=== PATIENT | male | born 2000 | race Caucasian/White ===

== ENCOUNTER 2023-10-19 10:47 | Emergency (ER) | payer BC, SELFPAY ==
--- NOTE | ~2023-10-19 | XR_ITS ---
EXAMINATION: XR foot LT min 3V DATE: 10/19/2023 11:13 INDICATION: Lateral left foot pain and swelling post injury TECHNIQUE: Dorsoplantar, two oblique and lateral views of the left foot were obtained. COMPARISON: None. FINDINGS: 2 mm distraction of an intra-articular avulsion fracture at the lateral base of the left fifth metata rsal. Bone alignment is otherwise normal. No other fractures identified. Joint spaces are normal. Mil d soft tissue swelling at the dorsolateral aspect of the midfoot. IMPRESSION: 1. Minimally displaced avulsion fracture at the lateral base of the left fifth metatarsal. Reviewed, dictated and finalized at location B.
[2023-10-19 11:00] VITALS: BP 121/80; PULSE 80; RESP 16; TEMP 36.7; O2SAT 99
--- NOTE | 2023-10-19 11:21 | ED.LOWEXIN ---
HPI - Extremity Injury (Lower) General Chief Complaint: Extremity Injury, Lower Stated Complaint: Left Foot Injury Time Seen by Provider: 10/19/23 11:15 Source: patient and RN notes reviewed Mode of arrival: ambulatory Limitations: no limitations History of Present Illness HPI Narrative: Patient presents today complaining of an injury to his left foot. States he rolled his foot last night playing basketball and hurt pop. Currently rates his pain 4/10 and has been applying ice and elevating the foot. Denies numbness or tingling. Related Data Home Medications Medication Instructions Recorded Confirmed No Home Medications 10/19/23 10/19/23 Allergies Allergy/AdvReac Type Severity Reaction Status Date / Time ibuprofen Allergy Swelling Verified 10/19/23 10:57 of Lip/Tongue/Throat Review of Systems Review of Systems: CONSTITUTIONAL: Denies body aches, fever, chills, or sweats. EYES: Denies visual changes, redness, or discharge. ENT: Denies rhinorrhea, congestion, sore throat, or otalgia. CARDIOVASCULAR: Denies chest pain, palpitations, or edema. RESPIRATORY: Denies cough or dyspnea. GASTROINTESTINAL: Denies abdominal pain, nausea, vomiting, or diarrhea. GENITOURINARY: Denies dysuria or hematuria. SKIN: Denies rash, itching, or wounds. MUSCULOSKELETAL: + left foot injury NEUROLOGIC: Denies headache, numbness, tingling, or weakness. PSYCH: Denies depression or anxiety. PMFSH Comments At time of signature, I have reviewed and agree with nursing past medical, surgical, social and family history unless otherwise noted. Please see nursing chart for further information. There is no relevant family history pertinent to the presenting complaint Exam Narrative: GENERAL: Well-appearing, well-nourished, and in no acute distress. HEAD: Normocephalic, atraumatic. EYES: EOMI. No redness or drainage. Conjunctivae normal. ENT: Mucous membranes pink and moist. NECK: Normal AROM. CHEST: No respiratory distress. EXTREMITIES: Left foot: Mild swelling and moderate ecchymosis to the lateral foot with tenderness to the 5th metatarsal. Distal sensation intact. Capillary refill normal. Pedal pulse normal. Full range of motion of all toes and ankle. Pain with internal and external rotation of foot. SKIN: Warm, dry, no rash. Capillary refill normal. Normal skin turgor. NEURO: No focal deficits. Alert and oriented x3. Gait steady. PSYCH: Normal affect. No signs of depression or anxiety. Course Course Level of Care: Express Care Visit Vital Signs Vital signs: Vital Signs Temperature 98.1 F 10/19/23 11:00 Pulse Rate 80 10/19/23 11:00 Respiratory Rate 16 10/19/23 11:00 Blood Pressure 121/80 10/19/23 11:00 Pulse Oximetry 99 10/19/23 11:00 Temperature 98.1 F 10/19/23 11:00 Pulse Rate 80 10/19/23 11:00 Respiratory Rate 16 10/19/23 11:00 Blood Pressure 121/80 10/19/23 11:00 Pulse Oximetry 99 10/19/23 11:00 Reviewed MDM - Extremity Injury (Lower) MDM Narrative Medical decision making narrative: X-ray shows avulsion fracture off the base of the 5th metatarsal. Patient is placed in a hard-soled shoe and put on crutches. Instructed to follow-up with either Orthopedics or Podiatry. Patient agrees with plan. Differential Diagnosis Differential diagnosis: Likely other (Foot fracture, contusion, sprain) Imaging Data Radiologist's impression: ITS Impressions Foot X-Ray 10/19/23 11:48 IMPRESSION: 1. Minimally displaced avulsion fracture at the lateral base of the left fifth metatarsal. Critical Care Time Critical Care Time Critical Care Time: No Discharge Plan Discharge Clinical Impression: Avulsion fracture of metatarsal bone of left foot Qualifiers: Encounter type: initial encounter Fracture type: closed Qualified Code(s): S92.302A - Fracture of unspecified metatarsal bone(s), left foot, initial encounter for closed fracture Patient
== END 2023-10-19 12:02 | disposition home or self-care (01) ==
PROVIDERS: Emergency Provider Nurse Practitioner
DX: S92.352A Displaced fracture of fifth metatarsal bone, left foot, initial encounter for closed fracture (principal); X50.9XXA Other and unspecified overexertion or strenuous movements or postures, initial encounter; Y93.67 Activity, basketball
CPT/HCPCS: 73630; 99214; G0463